=== PATIENT | female | born 1980 | race Caucasian/White ===

== ENCOUNTER 2016-09-12 08:47 | Inpatient (IN) | payer OTHER ==
[~2016-09-12] VITALS: Ht 157.5 cm; Wt 88.6 kg
[2016-09-12] MEDS ORDERED: IBUP-1114 PO (09:10)
[2016-09-12] MEDS ORDERED: CEPH500T PO (09:10)
[2016-09-12] MEDS ORDERED: CLINDAMYCIN 900 MG in APPROPRIATE DILUENT 1 EA IV ONE (10:00)
[2016-09-12 10:05] LABS: BASO # 0.1 K/mm3 (0.0-0.2); EOS # 0.1 K/mm3 (0.0-0.50); EOS % 0.9 % (0.0-3.0); LARGE UNSTAINED CELL # 0.2 K/mm3 (0.0-0.4); LARGE UNSTAINED CELL % 1.4 % (0.0-4.0); LYMPH # 1.3 K/mm3 (1.5-4.5); LYMPH % 11.1 % (24.0-44.0); MEAN CORPUSCULAR HGB CONC 34.1 g/dl (32.0-36.5); MEAN CORPUSCULAR VOLUME 90.9 fl (80.0-96.0); MONO # 0.4 K/mm3 (0.0-0.8); MONO % 3.6 % (0.0-5.0); NEUTROPHILS # 9.8 K/mm3 (1.8-7.7); NEUTROPHILS % 81.9 % (36.0-66.0); PLATELET COUNT, AUTOMATED 288 k/mm3 (150-450); RED CELL DISTRIBUTION WIDTH 12.5 % (11.5-14.5)
[2016-09-12 10:25] LABS: ERYTHROCYTE SEDIMENTATION RATE 41 mm/hr (0-20)
[2016-09-12 10:39] LABS: ALBUMIN 3.8 GM/DL (3.2-5.2); ALBUMIN/GLOBULIN RATIO 0.93 (1.00-1.93); ALKALINE PHOSPHATASE 90 U/L (45-117); ALT/SGPT 22 U/L (12-78); ANION GAP 6 MEQ/L (8-16); AST/SGOT 15 U/L (15-37); BILIRUBIN,DIRECT 0.1 MG/DL (0.0-0.2); BILIRUBIN,TOTAL 0.4 MG/DL (0.2-1.0); BLOOD UREA NITROGEN 8 MG/DL (7-18); CALCIUM LEVEL 9.1 MG/DL (8.5-10.1); CARBON DIOXIDE LEVEL 24 MEQ/L (21-32); CHLORIDE LEVEL 106 MEQ/L (98-107); GLOMERULAR FILTRATION RATE > 60.0 (>60); GLUCOSE, FASTING 104 MG/DL (70-105); POTASSIUM SERUM 3.9 MEQ/L (3.5-5.1); SODIUM LEVEL 136 MEQ/L (136-145); TOTAL PROTEIN 7.9 GM/DL (6.4-8.2)
[2016-09-12] MEDS ORDERED: IBUP200C10 PO (11:27)
[2016-09-12] MEDS ORDERED: ACETAMINOPHEN TAB 650MG DOSE (2X325MG) PO PRN (12:15)
--- NOTE | 2016-09-12 12:52 | HPE ---
DATE OF ADMISSION: 09/12/2016 PRIMARY CARE PROVIDER: None. CHIEF COMPLAINT: Worsening right arm infection. HISTORY OF PRESENT ILLNESS: This patient is a 36-year-old female with no significant past medical history. Patient is admitted to [facility] on 09/12/2016 for worsening right upper extremity wound. The patient stated that she started to see some mild blisters near the right lateral elbow around Friday night and within the next 1-2 days the patient started to have a rapidly progressing rash and blisters. The patient went to urgent care on Friday and the patient took Keflex for two days and it was not help so she returned to urgent care and received IM Rocephin. Initially there was some minor regression of the erythema, however the erythema and swelling progressed again and the next morning the patient came to [facility] for further evaluation. The patient attended a wedding last Friday, which was near the [facility], and the patient has been doing her yard work, but she is not sure if she has been bitten by any type of insect. She did notice some insect bite ojeda on the right lateral elbows on Friday night. Denies any other associated symptoms. PAST MEDICAL HISTORY: None. PAST SURGICAL HISTORY: None. MEDICATIONS: None. SOCIAL HISTORY: Patient smokes half a pack daily for 20 years. Patient drinks mixed drinks 1-2 times weekly. REVIEW OF SYSTEMS: GENERAL: No fever, no chills. HEENT: No vision changes, no auditory changes. CARDIOVASCULAR: No chest pain. No palpitations. RESPIRATORY: No shortness of breath. No wheeze. No cough. GASTROINTESTINAL (GI): No nausea, no vomiting. No abdominal pain or diarrhea. MUSCULOSKELETAL: No joint pain or muscle pain. DERMATOLOGICAL: Patient had a rapid progression of skin erythema radiating from the right lateral elbow and all the skin symptoms started since last Friday, which is approximately 4-5 days ago. NEUROLOGICAL: No numbness or tingling. OBJECTIVE: VITAL SIGNS: Temperature 97.1, pulse is 92, respirations 18, blood pressure 163/75, pulse oximetry 100% in room air. GENERAL: No signs of acute distress. Alert and oriented times three. HEENT: Normocephalic, atraumatic. Extraocular motors grossly intact. CARDIOVASCULAR: Positive S1 and S2, regular rate. LUNGS: Clear to auscultation bilaterally. ABDOMEN: Soft, nontender, nondistended. Bowel sounds present. No rebound. No guarding. MUSCULOSKELETAL: No lower extremity edema. No signs of cyanosis. DERMATOLOGICAL: There are some large areas of erythema from the right elbow to the middle right forearm. In the center of the erythema there is an open wound with diameter of approximately 5 cm. No active discharge noted. NEUROLOGICAL: Sensation to fine touch grossly intact. Muscle strength 5/5. LABORATORY DATA: Hemoglobin is 13.9, hematocrit 40.7, platelet count is 288, ESR is 41. Sodium 136, potassium 3.9, chloride 106, carbon dioxide 24, BUN 8, creatinine 0.7, GFR is greater than 60, fasting glucose is 104, calcium 9.1, total bilirubin 0.4, direct bilirubin 0.1, AST 15, ALT 42, alkaline phosphatase 99, C-reactive protein 10.4, total protein 7.9, albumin 3.8. Microbiology: Blood cultures obtained for two sets. ASSESSMENT/PLAN: 1. Right upper extremity cellulitis. Patient admitted to medical/surgical floor under inpatient status. Patient has history of failed outpatient antibiotic regimen. Patient had Keflex previously. We will followup with the blood culture and wound culture. 2. Deep vein thrombosis (DVT) prophylaxis. Patient will be on heparin.
[2016-09-12 13:35] VITALS: BP 135/78
[2016-09-12] MEDS: DOXYCYCLINE HYCLATE 100 MG in D5W MINI-BAG PLUS 100 ML IV SCH (14:52)
[2016-09-12] MEDS: NICOTINE 14 MG/24 HR TRANSDERMAL TD SCH (14:52)
[2016-09-12] MEDS: HEPARIN SOD (PORCINE) 5000 UNITS/ML VIAL SC SCH ×2 (14:52→21:28)
[2016-09-12 22:00] VITALS: BP 160/56
[2016-09-13] MEDS: DOXYCYCLINE HYCLATE 100 MG in D5W MINI-BAG PLUS 100 ML IV SCH ×2 (00:46→13:03)
[2016-09-13] MEDS: HEPARIN SOD (PORCINE) 5000 UNITS/ML VIAL SC SCH ×3 (05:10→21:43)
[2016-09-13 06:24] LABS: MEAN CORPUSCULAR HEMOGLOBIN 30.4 pg (27.0-33.0); MEAN CORPUSCULAR HGB CONC 33.4 g/dl (32.0-36.5); MEAN CORPUSCULAR VOLUME 91.2 fl (80.0-96.0); RED CELL DISTRIBUTION WIDTH 12.3 % (11.5-14.5); WHITE BLOOD COUNT 9.4 K/mm3 (4.0-10.0)
[2016-09-13 06:36] LABS: ANION GAP 7 MEQ/L (8-16); BLOOD UREA NITROGEN 7 MG/DL (7-18); CALCIUM LEVEL 8.9 MG/DL (8.5-10.1); CARBON DIOXIDE LEVEL 24 MEQ/L (21-32); CHLORIDE LEVEL 108 MEQ/L (98-107); GLOMERULAR FILTRATION RATE > 60.0 (>60); GLUCOSE, FASTING 92 MG/DL (70-105); POTASSIUM SERUM 3.9 MEQ/L (3.5-5.1); SODIUM LEVEL 139 MEQ/L (136-145)
[2016-09-13] MEDS: NICOTINE 14 MG/24 HR TRANSDERMAL TD SCH (09:04)
[2016-09-13 14:00] VITALS: BP 133/84
--- NOTE | 2016-09-13 17:26 | IPN ---
DATE: 09/13/2016 SUBJECTIVE: The patient is seen and examined in the room today. The patient has been receiving the doxycycline since admission and the patient continues to notice the regression of her rash. No adverse effect from antibiotic use. OBJECTIVE: VITAL SIGNS: Temperature is 97.3, pulse is 68, respirations 20, blood pressure is 133/84, pulse oximetry 100% on room air. GENERAL: No sign of acute distress. Alert and oriented times three. HEENT: Normocephalic, atraumatic. Extraocular motor grossly intact. CARDIOVASCULAR: Positive S1, S2. Regular rate. LUNGS: Clear to auscultation bilaterally. ABDOMEN: Soft, nontender, nondistended. Bowel sounds present. No rebound or guarding. DERMATOLOGIC: The patient's erythematous skin changes were marked with a surgical marker, and there is no visible regression of the erythema compared to yesterday. There is some fullness and tenderness to palpation near the central wound, but there is no active discharge or bleeding noted. EXTREMITIES: No edema. No cyanosis. LABORATORY DATA: WBC is 9.4, hemoglobin is 12.1, hematocrit 36.4, platelet count 264. Sodium is 139, potassium 3.9, chloride 108, carbon dioxide 24, BUN seven, creatinine 0.7, GFR greater than 60, fasting glucose 92, calcium 8.9. C-reactive protein 7.49. MICROBIOLOGY: Blood cultures negative after 24 hours times two sets. Official report pending. Wound cultures pending. ASSESSMENT AND PLAN: 1. Left upper extremity cellulitis. The patient has a history of outpatient therapy. The patient had Keppra previously. The patient shows significant improvement with doxycycline intravenous (IV). The patient has clinical improvement and also the inflammatory marker also shows significant decrease. If the patient continues to show improvement, we anticipate the patient may be discharged tomorrow with oral form of doxycycline. 2. Deep venous thrombosis (DVT) prophylaxis. The patient is on heparin.
[2016-09-13] MEDS: LACTOBACILLUS ACIDOPHILUS CAP (BACID) PO SCH (17:58)
[2016-09-13 22:00] VITALS: BP 133/62
[2016-09-14] MEDS: DOXYCYCLINE HYCLATE 100 MG in D5W MINI-BAG PLUS 100 ML IV SCH ×2 (01:37→13:21)
[2016-09-14] MEDS: HEPARIN SOD (PORCINE) 5000 UNITS/ML VIAL SC SCH (05:56)
[2016-09-14 06:00] VITALS: BP 129/70
[2016-09-14 06:51] LABS: MEAN CORPUSCULAR HEMOGLOBIN 31.5 pg (27.0-33.0); MEAN CORPUSCULAR HGB CONC 34.7 g/dl (32.0-36.5); MEAN CORPUSCULAR VOLUME 90.6 fl (80.0-96.0); RED CELL DISTRIBUTION WIDTH 12.7 % (11.5-14.5); WHITE BLOOD COUNT 8.6 K/mm3 (4.0-10.0)
[2016-09-14 07:08] LABS: ANION GAP 8 MEQ/L (8-16); BLOOD UREA NITROGEN 8 MG/DL (7-18); CALCIUM LEVEL 8.9 MG/DL (8.5-10.1); CARBON DIOXIDE LEVEL 23 MEQ/L (21-32); CHLORIDE LEVEL 106 MEQ/L (98-107); CREATININE FOR GFR 0.66 MG/DL (0.55-1.02); GLOMERULAR FILTRATION RATE > 60.0 (>60); GLUCOSE, FASTING 93 MG/DL (70-105); SODIUM LEVEL 137 MEQ/L (136-145)
[2016-09-14] MEDS: LACTOBACILLUS ACIDOPHILUS CAP (BACID) PO SCH ×2 (09:45→12:30)
[2016-09-14] MEDS: NICOTINE 14 MG/24 HR TRANSDERMAL TD SCH (09:45)
[2016-09-14] MEDS ORDERED: DOXY-278 PO (10:36)
--- NOTE | 2016-09-15 20:52 | DSES ---
DATE OF ADMISSION: 09/12/2016 DATE OF DISCHARGE: 09/14/2016 PRIMARY CARE PROVIDER: None. ADMISSION/DISCHARGE DIAGNOSIS: Right upper extremity cellulitis, failing outpatient antibiotic therapy. HOSPITAL COURSE: Patient is a 36-year-old female who presented to [facility] on 09/12/2016 for worsening right arm infection. Patient was seen in Urgent Care previously for her right upper extremity wound/infection. Patient failed Keflex treatment and the wound shows rapid progression and patient came to [facility] for treatment. Patient was admitted to the medical/surgical floor as an inpatient status. Patient was started on empirical antibiotics of doxycycline. With the right treatment, patient should continued regression of the erythema and swelling. On 2016, patient was stable for discharge with the recommendation to finish a full course of doxycycline antibiotic treatment. Patient is recommended to establish with a primary care provider in the next 1-2 weeks. OBJECTIVE: VITAL SIGNS: Temperature 97.1, pulse is 58, respirations 20, blood pressure 129/70, pulse oximetry 98% on room air. LABORATORY DATA: WBC 8.6, hemoglobin 12.1, hematocrit 34.8, platelet count 307. Sodium 137, potassium 4, chloride 106, carbon dioxide 23, BUN 8, creatinine 0.6, GFR greater than 60, fasting glucose 93, calcium 8.9. MICROBIOLOGY: Blood cultures negative after 72 hours times two sets. Wound cultures show Staphylococcus coag-negative. DISCHARGE MEDICATIONS: - doxycycline 100 mg by mouth twice a day for seven days - ibuprofen 400 mg by mouth as needed for pain DISCHARGE INSTRUCTIONS: Discontinue line. Discharge to home. Activity as tolerated. Diet as tolerated. Patient should finish a seven day course of doxycycline. Patient should establish with a new primary care provider to follow with antibiotic treatment and wound healing. DISCHARGE CONDITION: Stable. DISCHARGE TIME: Greater than 30 minutes.
== END 2016-09-14 13:19 | disposition home or self-care (01) | DRG 383 ==
LOC: M ED 08:47 → M ED INP 12:04 → M MS5PR 13:30
PROVIDERS: ADMIT Internal Medicine; ATTEND Internal Medicine
DX: L03.113 Cellulitis of right upper limb (principal); F17.200 Nicotine dependence, unspecified, uncomplicated